=== PATIENT | male | born 2000 | race Caucasian/White ===

== ENCOUNTER → 2022-03-12 | Outpatient (CLI) | payer BC ==
--- NOTE | 2022-03-12 13:24 | Diagnostic Imaging Report ---
EXAMINATION: Left ankle radiographs, 3 views. COMPARISON: None. HISTORY: 22-year-old male, left ankle pain. FINDINGS: The alignment of the ankle mortise is unremarkable. There is an os trigonum. There is a tibiotalar joint effusion. There is no identified acute fracture. The joint spaces are well preserved. IMPRESSION: 1. Tibiotalar joint effusion without identified acute osseous abnormality or joint space loss. Dictated by: Dictated on workstation # [id number]
== END ==
LOC: RAD 12:37
PROVIDERS: ATTEND Nurse Practitioner Family
DX: S99.912A Unspecified injury of left ankle, initial encounter (principal); X58.XXXA Exposure to other specified factors, initial encounter
CPT/HCPCS: 73610